=== PATIENT | male | born 1950 | race American Indian/Alaskan Native ===

== ENCOUNTER 2018-11-14 19:13 | Inpatient (IN) | payer MEDICARE, OTHER ==
[2018-11-14] MEDS ORDERED: NACL 0.9% 1000 ML 1,000 ML IV ONE (19:35)
[2018-11-14 19:54] LABS: Basophils % (Auto) 0.4 % (0.0-1.8); Eosinophils % (Auto) 0.1 % (0.0-4.3); Hematocrit 38.5 % (35.5-45.6); Hemoglobin 12.8 gm/dl (11.8-15.2); Lymphocytes # (Auto) 0.9 K/mm3 (1.2-5.4); Lymphocytes % (Auto) 8.8 % (13.4-35.0); Mean Corpuscular HGB Conc 33 % (32-34); Mean Corpuscular Volume 96 fl (84-94); Monocytes # (Auto) 0.9 K/mm3 (0.0-0.8); Monocytes % (Auto) 8.9 % (0.0-7.3); Platelet Count 250 K/mm3 (140-440); Red Blood Count 4.02 M/mm3 (3.65-5.03); Red Cell Distribution Width 12.5 % (13.2-15.2)
[2018-11-14] MEDS ORDERED: LEVSIN SL SL ONE (19:55)
[2018-11-14] MEDS ORDERED: ZOFRAN ODT PO STA (19:55)
[2018-11-14 20:56] LABS: Bilirubin,Urine NEG (Negative); Blood,Urine SM (Negative); Color,Urine Yellow (Yellow); Hyaline Casts,Urine 1 /LPF; Mucus,Urine FEW /HPF; RBC,Urine < 1.0 /HPF (0.0-6.0)
--- NOTE | 2018-11-14 21:14 | XRay Report ---
FINAL REPORT EXAM: XR ABD SERIES W CXR 1V HISTORY: constipation abd pain TECHNIQUE: Frontal view of the chest and frontal views of the abdomen and pelvis in the supine and u pright positions Comparison: None FINDINGS: X-ray chest: There is bilateral hyperinflation of the lungs without evidence of focal infiltrate, pneumothorax or pleural fluid collection. The cardiac silhouette is normal size. The thoracic aorta is mildly tortuous. The bony structures are notable for mild dextrocurvature of the lower thoracic spine. X-ray abdomen and pelvis: There are mildly to moderately distended air-filled loops of bowel in the abdomen with a paucity of b owel gas in the pelvis. Air-fluid levels are demonstrated on the upright view. This is concerning for a small bowel obstructi on. There is no definite evidence of pneumoperitoneum. Surgical clips are demonstrated in the upper abdomen and in the lower pelvis. The bony structures are unremarkable. IMPRESSION: 1. Findings concerning for a small bowel obstruction. CT abdomen and pelvis is recommended for further evaluation. 2. Hyperinflation suggestive of COPD.
[2018-11-14 21:27] LABS: Alanine Aminotransferase 47 units/L (7-56); Albumin 4.9 g/dL (3.9-5); BUN/Creatinine Ratio 13; Blood Urea Nitrogen 14 mg/dL (9-20); Calcium 9.8 mg/dL (8.4-10.2); Hemolysis Index 38
--- NOTE | 2018-11-14 21:35 | Emergency Department Report ---
ED Abdominal Pain HPI - General Chief Complaint: Abdominal Pain Stated Complaint: ABDOMINAL PAIN Time Seen by Provider: 11/14/18 19:55 Source: patient Mode of arrival: Ambulatory Limitations: No Limitations - History of Present Illness Initial Comments: 68-year-old -[place] male with a past medical history of prostate cancer in remission, and hypertension as well as peptic ulcers, treated with a partial gastrectomy presents to the emergency department complaining of abdominal pain that started on yesterday and a sharp throbbing fashion. This was associated with some nausea and a couple episodes of vomiting. He reports no diarrhea but has has had some constipation. Last bowel movement being 2 days ago. Post no fever, chills, sweats, chest pain, palpitations. No dysuria or hematuria. No new medications and denies any trauma. MD Complaint: abdominal pain Location: diffuse Radiation: none Migration to: no migration Severity: mild Quality: dull Consistency: constant Improves With: nothing Worsens With: nothing Associated Symptoms: nausea. denies: vomiting, diarrhea, constipation, dysuria, hematemesis, hematochezia, hematuria, anorexia, syncope - Related Data Home Medications Medication Instructions Recorded Confirmed Last Taken Cyanocobalamin (Vitamin B-12) 1,000 mcg PO DAILY 11/15/18 11/15/18 Unknown [Vitamin B-12] Folic Acid [Folvite] 1 mg PO QDAY 11/15/18 11/15/18 Unknown Multivitamin Tab W-MINERAL 1 each PO QD 11/15/18 11/15/18 Unknown [Multiple Vitamin/Mineral (Theragran M)] Thiamine [Vitamin B-1] 100 mg PO QDAY 11/15/18 11/15/18 Unknown hydroCHLOROthiazide [HCTZ] 25 mg PO QDAY 11/15/18 11/15/18 Unknown Allergies Allergy/AdvReac Type Severity Reaction Status Date / Time shellfish derived Allergy Swelling Verified 11/14/18 19:35 ED Review of Systems ROS: Stated complaint: ABDOMINAL PAIN Other details as noted in HPI Constitutional: denies: chills, fever Eyes: denies: eye pain, eye discharge, vision change ENT: denies: ear pain, throat pain Respiratory: denies: cough, shortness of breath, wheezing Cardiovascular: denies: chest pain, palpitations Endocrine: no symptoms reported Gastrointestinal: denies: abdominal pain, nausea, diarrhea Genitourinary: denies: urgency, dysuria Musculoskeletal: denies: back pain, joint swelling, arthralgia Skin: denies: rash, lesions Neurological: denies: headache, weakness, paresthesias Psychiatric: denies: anxiety, depression Hematological/Lymphatic: denies: easy bleeding, easy bruising ED Past Medical Hx - Past Medical History Previous Medical History?: Yes Hx Hypertension: Yes Hx of Cancer: Yes (prostate remission) - Surgical History Past Surgical History?: Yes Additional Surgical History: ulcer took half of stomach. hernia repair. - Social History Smoking Status: Never Smoker Substance Use Type: None - Medications Home Medications: Home Medications Medication Instructions Recorded Confirmed Last Taken Type Cyanocobalamin (Vitamin B-12) 1,000 mcg PO DAILY 11/15/18 11/15/18 Unknown History [Vitamin B-12] Folic Acid [Folvite] 1 mg PO QDAY 11/15/18 11/15/18 Unknown History Multivitamin Tab W-MINERAL 1 each PO QD 11/15/18 11/15/18 Unknown History [Multiple Vitamin/Mineral (Theragran M)] Thiamine [Vitamin B-1] 100 mg PO QDAY 11/15/18 11/15/18 Unknown History hydroCHLOROthiazide [HCTZ] 25 mg PO QDAY 11/15/18 11/15/18 Unknown History ED Physical Exam - General Limitations: No Limitations General appearance: alert, in no apparent distress - Head Head exam: Present: atraumatic, normocephalic - Eye Eye exam: Present: normal appearance, PERRL, EOMI - ENT ENT exam: Present: normal exam, mucous membranes moist - Neck Neck exam: Present: normal inspection, full ROM. Absent: tenderness - Respiratory Respiratory exam: Present: normal lung sounds bilaterally. Absent: respiratory distress, rales, rhonchi - Cardiovascular Cardiovascular Exam: Present: regular rate, normal rhythm. Absent: systolic murmur, diastolic murmur, rubs, gallop - GI/Abdominal GI/Abdominal exam: Present: soft, tenderness, normal bowel sounds, other (he has some increase decreased tympany. Pain to the epigastric region and mid epigastric region as well. No Haroldo sign, no Bauer Duarte, no Rovsing. No CVA tenderness.) - Rectal Rectal exam: Present: deferred - Extremities Exam Extremities exam: Present: normal inspection - Back Exam Back exam: Present: normal inspection - Neurological Exam Neurological exam: Present: alert, oriented X3 - Psychiatric Psychiatric exam: Present: normal affect, normal mood - Skin Skin exam: Present: warm, dry, intact, normal color. Absent: rash ED Course Vital Signs 11/14/18 11/14/18 11/15/18 19:21 19:31 00:55 Temperature 97.9 F 97.9 F Pulse Rate 97 H 94 H Respiratory 18 18 20 Rate Blood Pressure 160/103 160/103 Blood Pressure [Left] O2 Sat by Pulse 100 100 98 Oximetry 11/15/18 01:40 Temperature 98.0 F Pulse Rate 75 Respiratory 20 Rate Blood Pressure Blood Pressure 147/90 [Left] O2 Sat by Pulse 98 Oximetry - Reevaluation(s) Reevaluation #1: 11/14/18 21:18 Patient is sitting with discomfort, no acute distress. I discussed the findings of the abdominal x-ray with him. He is aware of the possibility of an SBO the need for a CT scan Reevaluation #2: 11/15/18 02:49 Discussed patient's social history of began given his newfound pancreatitis. He admits to having some alcohol. Follow drainage that most recently. Family however states that he drinks beer daily basis, pretty much all day long ED Medical Decision Making - Lab Data Result diagrams: 11/14/18 19:40 11/14/18 20:26 - Radiology Data Radiology results: report reviewed (discussed findings with radiology of the acute abdominal series. Plan is to move [address] scan) - Medical Decision Making Findings of the of the CT scan was discussed with the patient and his family. Also discussed the findings of laboratory data, pancreatitis and hyponatremia. Plan is to admit case will be discussed with the ceramic tile installation helper hospitalist for admission. This was discussed with Dr. Hua as well and was aware of the need for admission. Critical care attestation.: If time is entered above; I have spent that time in minutes in the direct care of this critically ill patient, excluding procedure time. ED Disposition Clinical Impression: Hyponatremia, Pancreatitis Disposition: OP ADMIT IP TO THIS HOSP Is pt being admited?: Yes Does the pt Need Aspirin: No Condition: Stable Referrals: PRIMARY CARE, [Primary Care Provider] - 3-5 Days
[2018-11-14] MEDS ORDERED: BENADRYL IV STA (22:37)
[2018-11-14] MEDS ORDERED: SOLU-Medrol IV STA (22:37)
[2018-11-14] MEDS ORDERED: SOLU-Medrol ONE (22:41)
[2018-11-14] MEDS ORDERED: BENADRYL ONE (22:41)
--- NOTE | 2018-11-14 23:26 | Cat Scan Report ---
FINAL REPORT PROCEDURE: CT abdomen and pelvis with contrast. TECHNIQUE: Computerized axial tomography of the abdomen and pelvis was performed after the IV inject ion of iodinated nonionic contrast. HISTORY: Possible small-bowel obstruction on radiographs. COMPARISON: No prior studies are available for comparison. FINDINGS: There is mild bronchiectasis in both lower lobes. There are no pleural effusions. The heart size is n ormal. The liver, pancreas and spleen appear normal. The gallbladder is present. There is no biliary dilatation. The adrenal glands are not enlarged. There are bilateral renal cysts. The abdominal aorta has a normal caliber. There is no retroperitoneal adenopathy. The unopacified gastrointestinal tract is unremarkable. There are no signs of intestinal obstruction. I believe there is a normal appendix visible. The bladder and seminal vesicles are unremarkable. The prostate gland is mildly enlarged. Th e regional skeleton appears intact. IMPRESSION: Mild bronchiectasis in both lower lobes. Bilateral renal cysts. No evidence of intestinal obstruction . Mild enlargement of the prostate.
[2018-11-15] MEDS ORDERED: ZOFRAN IV PRN (01:31)
[2018-11-15] MEDS: NACL 0.9% 1000 ML 1,000 ML IV SCH ×3 (02:42→22:05)
[2018-11-15 03:24] LABS: BUN/Creatinine Ratio 14; Blood Urea Nitrogen 13 mg/dL (9-20); Hemolysis Index 17
[2018-11-15 06:20] LABS: BUN/Creatinine Ratio 12; Blood Urea Nitrogen 12 mg/dL (9-20); Calcium 9.1 mg/dL (8.4-10.2); Hemolysis Index 5
--- NOTE | 2018-11-15 08:58 | History and Physical Report ---
CHIEF COMPLAINT: Abdominal pain. HISTORY OF PRESENT ILLNESS: The patient is a 68-year male, who started having abdominal pain going on for about 2 to 3 days. The pain is in the periumbilical area and radiates to both sites according to the patient. There is no history of associated fever. There is a history of associated nausea. There is no history of diarrhea reported or history of constipation. There is also no history of chills, fever, or diaphoresis. The patient admitted to drinking some alcohol prior to symptoms occurring. There is no history of shortness of breath or chest pain. PAST MEDICAL HISTORY: Pertinent for hypertension; prostate cancer, in remission and peptic ulcer disease. PAST SURGICAL HISTORY: Pertinent for abdominal surgery because of peptic ulcer and hernia repair. FAMILY HISTORY: Noncontributory. SOCIAL HISTORY: The patient drinks alcohol. He does not smoke cigarettes and does not use illicit drugs. MEDICATIONS: The patient's home medications include cyanocobalamin 1000 mg by mouth daily, folic acid 1 mg by mouth daily, hydrochlorothiazide 25 mg by mouth daily, multivitamin with minerals 1 tablet by mouth daily, and thiamine 100 mg by mouth daily. ALLERGIES: THE PATIENT IS ALLERGIC TO SHELLFISH. REVIEW OF SYSTEMS: CONSTITUTIONAL: There is no fever, no chills, no diaphoresis. HEENT: There is no headache or sore throat. CARDIOVASCULAR SYSTEM: There is no chest pain or orthopnea. RESPIRATORY SYSTEM: There is no shortness of breath or cough. GASTROINTESTINAL SYSTEM: Abdominal pain present. Nausea present. No vomiting, no diarrhea or constipation. NEUROLOGICAL SYSTEM: There is no numbness, no dizziness, no altered mental status. MUSCULOSKELETAL SYSTEM: There is no joint pain or swelling. DERMATOLOGICAL SYSTEM: There is no skin rash or itching. GENITOURINARY SYSTEM: There is no dysuria, hematuria, or flank pain. Rest of system review is normal. PHYSICAL EXAMINATION: GENERAL: At the time of exam, the patient was found to be alert, oriented x3 and not in acute distress. VITAL SIGNS: At the initial time of presentation showed a temperature of 97.9 degrees Fahrenheit, pulse of 97, respirations 18, blood pressure 160/103, and O2 sat of 100% on room air. HEENT: Showed pupils to be equal, round, reactive to light and accommodating. Extraocular muscles are intact. NECK: Supple with no JVD or carotid bruit. CARDIOVASCULAR SYSTEM: Showed normal first and second heart sounds with no gallops or murmurs. RESPIRATORY SYSTEM: Showed good air entry on both sides of the lungs with no abnormal breath sounds. GASTROINTESTINAL SYSTEM: Showed abdomen to be full, soft, nontender with no organomegaly or rigidity. NEUROLOGICAL SYSTEM: Showed no focal deficits. MUSCULOSKELETAL SYSTEM: Showed no joint swelling or tenderness. DERMATOLOGICAL SYSTEM: Showed no skin rash. GENITOURINARY SYSTEM: Showed no costovertebral angle tenderness. PERTINENT LABORATORY DATA AND IMAGING STUDIES: The patient had acute abdominal series done that shows findings concerning for small bowel obstruction and the radiologist recommended CT of the abdomen and pelvis. There is also a finding of hyperinflation in the acute abdominal series suggestive of COPD. The patient had CT of the abdomen and pelvis done with contrast, and this showed mild bronchiectasis in both lower lobes of the lungs, bilateral ____ were found, no evidence of intestinal obstruction was found, mild enlargement of the prostate was noted. Lab results: The patient had CBC done with normal white count, normal hemoglobin and normal hematocrit with CBC differential showing elevated segmented neutrophil count of 81.8%, and the patient's chemistry showed low sodium level of 125, with normal potassium level and chloride level of 79.3. The patient's total bilirubin level was high with a value of 2.0. The patient's liver transaminases show elevated AST of 57 with normal ALT of 47. The patient's lipase level was high with a value of 2073. Urinalysis came back unremarkable. DIAGNOSES: 1. Acute pancreatitis. 2. Hyponatremia. PLAN: 1. The patient will be admitted to medical/surgical [facility]. 2. The patient will remain n.p.o. until symptoms resolve. 3. The patient will have basic metabolic panel checked at 2 a.m. and at 6 a.m. 4. The patient will have lipase level checked in the morning. 5. The patient will be on IV morphine 2 mg every 3 hours as needed for pain and IV Zofran 4 mg every 8 hours as needed for nausea and vomiting. 6. The patient will be sodium chloride and normal saline running at 125 mL an hour. 7. The patient will have sodium level monitored at 2 a.m. and at 6 a.m. today. 8. DVT prophylaxis will be through sequential compressive devices and heparin 5000 units subcutaneously q.12 hours. JOB# [id number] OCN/NTS
[2018-11-15] MEDS: HEPARIN SUB-Q SCH ×2 (10:32→22:04)
--- NOTE | 2018-11-15 10:38 | Progress Note ---
Assessment and Plan Assessment and plan: Patient is a 68 year old male with a past medical history of prostate cancer in remission, and hypertension and peptic ulcers, treated with a partial gastrectomy presents to the emergency department complaining of periumbilical pain started [employer].This was associated with some nausea and a couple episodes of vomiting. He reports no diarrhea but has has had some constipation. Post no fever, chills, sweats, chest pain palpitations. No dysuria or hematuria. No new medications and denies any trauma. Imaging studies revealed bronchiectasis but was also noted on labs to have significantly elevated Lipase. Acute Pancreatitis ?etoh induced Hyponatremia Prostate Ca- in remission ETOH USE DISORDER- Last drink was on wednesday prior to presentation. Drinks 4-6 23 oz beer. unable to clarify consistence HTN Peptic Ulcer Disease. PLAN Supportive care Pain control Check LFT Per family not on ACEI Counselling against etoh use. Patient verbalized understanding Restart appropriate home meds Evaluate for secondary etiology for pancreatitis. DVT/GI prophy Discussed plan with patient and family History Interval history: Patient seen and examined, Resting comfortably. still with some mild abdominal pain but no fever. Family at bedside Hospitalist Physical - Constitutional Vitals: Temp Pulse Resp BP Pulse Ox 97.9 F 78 20 145/70 98 11/15/18 05:00 11/15/18 05:00 11/15/18 08:50 11/15/18 05:00 11/15/18 05:00 Results - Labs CBC & Chem 7: 11/14/18 19:40 11/15/18 05:23 Labs: Laboratory Last Values WBC 9.8 K/mm3 (4.5-11.0) 11/14/18 19:40 RBC 4.02 M/mm3 (3.65-5.03) 11/14/18 19:40 Hgb 12.8 gm/dl (11.8-15.2) 11/14/18 19:40 Hct 38.5 % (35.5-45.6) 11/14/18 19:40 MCV 96 fl (84-94) H 11/14/18 19:40 MCH 32 pg (28-32) 11/14/18 19:40 MCHC 33 % (32-34) 11/14/18 19:40 RDW 12.5 % (13.2-15.2) L 11/14/18 19:40 Plt Count 250 K/mm3 (140-440) 11/14/18 19:40 Lymph % (Auto) 8.8 % (13.4-35.0) L 11/14/18 19:40 [place] % (Auto) 8.9 % (0.0-7.3) H 11/14/18 19:40 Eos % (Auto) 0.1 % (0.0-4.3) 11/14/18 19:40 Baso % (Auto) 0.4 % (0.0-1.8) 11/14/18 19:40 Lymph # 0.9 K/mm3 (1.2-5.4) L 11/14/18 19:40 [place] # 0.9 K/mm3 (0.0-0.8) H 11/14/18 19:40 Eos # 0.0 K/mm3 (0.0-0.4) 11/14/18 19:40 Baso # 0.0 K/mm3 (0.0-0.1) 11/14/18 19:40 Seg Neutrophils % 81.8 % (40.0-70.0) H 11/14/18 19:40 Seg Neutrophils # 8.0 K/mm3 (1.8-7.7) H 11/14/18 19:40 Sodium 130 mmol/L (137-145) L 11/15/18 05:23 Potassium 3.9 mmol/L (3.6-5.0) 11/15/18 05:23 Chloride 88.1 mmol/L (98-107) L 11/15/18 05:23 Carbon Dioxide 23 mmol/L (22-30) 11/15/18 05:23 Anion Gap 23 mmol/L 11/15/18 05:23 BUN 12 mg/dL (9-20) 11/15/18 05:23 Creatinine 1.0 mg/dL (0.8-1.5) 11/15/18 05:23 Estimated GFR > 60 ml/min 11/15/18 05:23 BUN/Creatinine Ratio 12 % 11/15/18 05:23 Glucose 122 mg/dL (75-100) H 11/15/18 05:23 Calcium 9.1 mg/dL (8.4-10.2) 11/15/18 05:23 Total Bilirubin 2.00 mg/dL (0.1-1.2) H 11/14/18 20:26 AST 57 units/L (5-40) H 11/14/18 20:26 ALT 47 units/L (7-56) 11/14/18 20:26 Alkaline Phosphatase 107 units/L (35-129) 11/14/18 20:26 Total Protein 7.6 g/dL (6.3-8.2) 11/14/18 20:26 Albumin 4.9 g/dL (3.9-5) 11/14/18 20:26 Albumin/Globulin Ratio 1.8 % 11/14/18 20:26 Lipase 1387 units/L (13-60) H 11/15/18 05:23 Urine Color Yellow (Yellow) 11/14/18 20:31 Urine Turbidity Clear (Clear) 11/14/18 20:31 Urine pH 5.0 (5.0-7.0) 11/14/18 20:31 Ur Specific [place] 1.018 (1.003-1.030) 11/14/18 20:31 Urine Protein 100 mg/dl mg/dL (Negative) 11/14/18 20:31 Urine Glucose (UA) Neg mg/dL (Negative) 11/14/18 20:31 Urine Ketones 20 mg/dL (Negative) 11/14/18 20:31 Urine Blood Sm (Negative) 11/14/18 20:31 Urine Nitrite Neg (Negative) 11/14/18 20:31 Urine Bilirubin Neg (Negative) 11/14/18 20:31 Urine Urobilinogen 2.0 mg/dL (<2.0) 11/14/18 20:31 Ur Leukocyte Esterase Neg (Negative) 11/14/18 20:31 Urine WBC (Auto) 1.0 /HPF (0.0-6.0) 11/14/18 20:31 Urine RBC (Auto) < 1.0 /HPF (0.0-6.0) 11/14/18 20:31 Hyaline Casts 1 /LPF 11/14/18 20:31 Urine Mucus Few /HPF 11/14/18 20:31
[2018-11-15] MEDS: THERAGRAN-M Tab PO SCH (15:12)
[2018-11-15] MEDS ORDERED: ATIVAN IV PRN (16:44)
[2018-11-15] MEDS: MORPHINE IV PRN (22:04)
[2018-11-16 05:28] LABS: Hematocrit 35.6 % (35.5-45.6); Hemoglobin 11.6 gm/dl (11.8-15.2); Mean Corpuscular HGB Conc 33 % (32-34); Mean Corpuscular Volume 99 fl (84-94); Platelet Count 198 K/mm3 (140-440); Red Blood Count 3.61 M/mm3 (3.65-5.03); Red Cell Distribution Width 12.6 % (13.2-15.2)
[2018-11-16 05:55] LABS: BUN/Creatinine Ratio 9; Blood Urea Nitrogen 9 mg/dL (9-20); Calcium 8.6 mg/dL (8.4-10.2)
[2018-11-16 05:56] LABS: Alanine Aminotransferase 27 units/L (7-56); Albumin 3.3 g/dL (3.9-5); Hemolysis Index 22
--- NOTE | 2018-11-16 09:20 | Progress Note ---
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 He reports no diarrhea but has has had some constipation. Post no fever, chills, sweats, chest pain palpitations. No dysuria or hematuria. No new medications and denies any trauma. Imaging studies revealed bronchiectasis but was also noted on labs to have significantly elevated Lipase. Acute Pancreatitis ?etoh induced Hyponatremia-IMPROVING Hypokalemia Prostate Ca- in remission ETOH USE DISORDER- Last drink was on Wednesday prior to presentation. Drinks 4-6 23 oz beer. unable to clarify consistence HTN Peptic Ulcer Disease. PLAN Supportive care Pain control Replace K LFT improving Per family not on ACEI advance diet Counselling against etoh use. Patient verbalized understanding Restart appropriate home meds Evaluate for secondary etiology for pancreatitis. DVT/GI prophy Discussed plan with patient and family Anticipate discharge in AM if tolerating diet History Interval history: Patient seen and examined, Resting comfortably. still with some mild abdominal pain but no fever. Family at bedside Hospitalist Physical - Physical exam Narrative exam: VITAL SIGNS: Reviewed. GENERAL: The patient appeared well nourished and normally developed. Vital signs as documented. HEAD: No signs of head trauma. EYES: Pupils are equal. Extraocular motions intact. EARS: Hearing grossly intact. MOUTH: Oropharynx is normal. NECK: No adenopathy, no JVD. CHEST: Chest with clear breath sounds bilaterally. No wheezes, rales, or rhonchi. CARDIAC: Regular rate and rhythm. S1 and S2, without murmurs, gallops, or rubs. VASCULAR: No Edema. Peripheral pulses normal and equal in all extremities. ABDOMEN: Soft, without detectable tenderness. No sign of distention. No rebound or guarding, and no masses palpated. Bowel Sounds normal. MUSCULOSKELETAL: Good range of motion of all major joints. Extremities without clubbing, cyanosis or edema. NEUROLOGIC EXAM: Alert and oriented x 3. No focal sensory or strength deficits. Speech normal. Follows commands. PSYCHIATRIC: Mood normal. SKIN: No rash or lesions. - Constitutional Vitals: Temp Pulse Resp BP Pulse Ox 98.4 F 68 20 148/95 100 11/16/18 08:17 11/16/18 08:17 11/16/18 08:17 11/16/18 08:17 11/16/18 08:17 Results - Labs CBC & Chem 7: 11/16/18 05:02 11/16/18 05:02 Labs: Laboratory Last Values WBC 10.5 K/mm3 (4.5-11.0) 11/16/18 05:02 RBC 3.61 M/mm3 (3.65-5.03) L 11/16/18 05:02 Hgb 11.6 gm/dl (11.8-15.2) L 11/16/18 05:02 Hct 35.6 % (35.5-45.6) 11/16/18 05:02 MCV 99 fl (84-94) H 11/16/18 05:02 MCH 32 pg (28-32) 11/16/18 05:02 MCHC 33 % (32-34) 11/16/18 05:02 RDW 12.6 % (13.2-15.2) L 11/16/18 05:02 Plt Count 198 K/mm3 (140-440) 11/16/18 05:02 Lymph % (Auto) 8.8 % (13.4-35.0) L 11/14/18 19:40 [place] % (Auto) 8.9 % (0.0-7.3) H 11/14/18 19:40 Eos % (Auto) 0.1 % (0.0-4.3) 11/14/18 19:40 Baso % (Auto) 0.4 % (0.0-1.8) 11/14/18 19:40 Lymph # 0.9 K/mm3 (1.2-5.4) L 11/14/18 19:40 [place]ink[place] # 0.9 K/mm3 (0.0-0.8) H 11/14/18 19:40 Eos # 0.0 K/mm3 (0.0-0.4) 11/14/18 19:40 Baso # 0.0 K/mm3 (0.0-0.1) 11/14/18 19:40 Seg Neutrophils % 81.8 % (40.0-70.0) H 11/14/18 19:40 Seg Neutrophils # 8.0 K/mm3 (1.8-7.7) H 11/14/18 19:40 Sodium 133 mmol/L (137-145) L 11/16/18 05:02 Potassium 3.4 mmol/L (3.6-5.0) L 11/16/18 05:02 Chloride 97.2 mmol/L (98-107) L 11/16/18 05:02 Carbon Dioxide 21 mmol/L (22-30) L 11/16/18 05:02 Anion Gap 18 mmol/L 11/16/18 05:02 BUN 9 mg/dL (9-20) 11/16/18 05:02 Creatinine 1.0 mg/dL (0.8-1.5) 11/16/18 05:02 Estimated GFR > 60 ml/min 11/16/18 05:02 BUN/Creatinine Ratio 9 % 11/16/18 05:02 Glucose 113 mg/dL (75-100) H 11/16/18 05:02 Calcium 8.6 mg/dL (8.4-10.2) 11/16/18 05:02 Total Bilirubin 0.60 mg/dL (0.1-1.2) 11/16/18 05:02 AST 32 units/L (5-40) 11/16/18 05:02 ALT 27 units/L (7-56) 11/16/18 05:02 Alkaline Phosphatase 72 units/L (35-129) 11/16/18 05:02 Total Protein 6.2 g/dL (6.3-8.2) L 11/16/18 05:02 Albumin 3.3 g/dL (3.9-5) L 11/16/18 05:02 Albumin/Globulin Ratio 1.1 % 11/16/18 05:02 Lipase 1387 units/L (13-60) H 11/15/18 05:23 Urine Color Yellow (Yellow) 11/14/18 20:31 Urine Turbidity Clear (Clear) 11/14/18 20:31 Urine pH 5.0 (5.0-7.0) 11/14/18 20:31 Ur Specific Broussard 1.018 (1.003-1.030) 11/14/18 20:31 Urine Protein 100 mg/dl mg/dL (Negative) 11/14/18 20:31 Urine Glucose (UA) Neg mg/dL (Negative) 11/14/18 20:31 Urine Ketones 20 mg/dL (Negative) 11/14/18 20:31 Urine Blood Sm (Negative) 11/14/18 20:31 Urine Nitrite Neg (Negative) 11/14/18 20:31 Urine Bilirubin Neg (Negative) 11/14/18 20:31 Urine Urobilinogen 2.0 mg/dL (<2.0) 11/14/18 20:31 Ur Leukocyte Esterase Neg (Negative) 11/14/18 20:31 Urine WBC (Auto) 1.0 /HPF (0.0-6.0) 11/14/18 20:31 Urine RBC (Auto) < 1.0 /HPF (0.0-6.0) 11/14/18 20:31 Hyaline Casts 1 /LPF 11/14/18 20:31 Urine Mucus Few /HPF 11/14/18 20:31 Nutrition/Malnutrition Assess - Dietary Evaluation Nutrition/Malnutrition Findings: Nutrition Notes Start: 11/15/18 12:19 Freq: Status: Active Protocol: Document 11/15/18 12:19 CT (Rec: 11/15/18 12:51 CT [id number]) Co-Sign 11/15/18 12:19 RM Nutrition Notes Need for Assessment generated from: MST Initial or Follow up Assessment Current Diagnoses Hypertension Other Pertinent Diagnosis pancreatitis, partial gastrectomy, peptic ulcer Current Diet NPO Labs/Tests glucose 122 NA 130 Medications reviewed Height 5 ft 8 in Weight 49.8 kg [place] Body Weight (lbs) 154.0 BMI 16.7 Subjective/Other Information RD screen for MST. Pt reported his UBW is 117. He has not eaten since 11/12/18, has a strong appetite and is not experiencing any n/v/d. He would like ONS following diet advancement. Burn Absent Trauma Absent #1 Nutrition Diagnoses Predicted suboptimal energy intake Etiology decreased appetite d/t pancreatitis As Evidenced by Signs and Symptoms BMI 16.7 Is patient on ventilator? No Is Patient Ambulatory and/or Out of Bed Yes REE-([place]-St. Jeor-ambulatory/OOB) [ 8128.750 NUTR.MSJOOB] Kcal/Kg value to use for calculation 38 Approximate Energy Requirements Using 1892 kcal/Kg Calculation Used for Recommendations Kcal/kg Additional Notes PRO: (1.2 - 1.4 g/kg) 60 - 70g PRO/daily fluid: 1ml/kcal Nutrition Intervention Change Diet Order: Advance when medically feasible. Add Supplement/Snack (indicate name/kcal Ensure Clear Daily once diet /protein ) advanced Provides kCal: 240 Provides Protein (gm) 8 Goal #1 Diet Advancement Follow-Up By: 11/18/18 Additional Comments F/U: Diet Advancement
[2018-11-16] MEDS ORDERED: HYDROCHLOROTHIAZIDE PO SCH (10:00)
[2018-11-16] MEDS ORDERED: K-DUR PO NR (10:00)
[2018-11-16] MEDS ORDERED: LISINOPRIL PO SCH (10:00)
[2018-11-16] MEDS ORDERED: NON-FORMULARY (Cyanocobalamin (Vitamin B-12) [Vitamin B-12] 1,000 MCG) PO SCH (10:00)
[2018-11-16] MEDS: NACL 0.9% 1000 ML 1,000 ML IV SCH ×2 (10:42→22:07)
[2018-11-16] MEDS: FOLVITE PO SCH (10:45)
[2018-11-16] MEDS: VITAMIN B-12 PO SCH (10:45)
[2018-11-16] MEDS: VITAMIN B-1 PO SCH (10:46)
[2018-11-16] MEDS: HCTZ PO SCH (10:46)
[2018-11-16] MEDS: THERAGRAN-M Tab PO SCH (10:46)
[2018-11-16] MEDS: HEPARIN SUB-Q SCH ×2 (10:47→22:06)
[2018-11-16] MEDS: COLACE PO SCH ×2 (17:59→22:05)
[2018-11-16] MEDS: MORPHINE IV PRN (19:12)
--- NOTE | 2018-11-17 08:17 | Discharge Summary ---
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 He reports no diarrhea but has has had some constipation. Post no fever, chills, sweats, chest pain palpitations. No dysuria or hematuria. No new medications and denies any trauma. Imaging studies revealed bronchiectasis but was also noted on labs to have significantly elevated Lipase. Patient was treated for acute pancreatitis and extensive counselling was given about alcohol use. He is stable for discharge, will continue on GI soft diet and follow with PCP. Acute Pancreatitis ?etoh induced Hyponatremia-IMPROVING Hypokalemia Prostate Ca- in remission ETOH USE DISORDER- Last drink was on Wednesday prior to presentation. Drinks 4-6 23 oz beer. unable to clarify consistence HTN Peptic Ulcer Disease. Disposition: DC-01 TO HOME OR SELFCARE Time spent for discharge: 35 mins Core Measure Documentation - Palliative Care Palliative Care/ Comfort Measures: Not Applicable - Core Measures Any of the following diagnoses?: none Exam - Physical Exam Narrative exam: VITAL SIGNS: Reviewed. GENERAL: The patient appeared normally developed otherwise cachetic. Vital signs as documented. HEAD: No signs of head trauma. temporal wasting EYES: Pupils are equal. Extraocular motions intact. EARS: Hearing grossly intact. MOUTH: Oropharynx is normal. NECK: No adenopathy, no JVD. CHEST: Chest with clear breath sounds bilaterally. No wheezes, rales, or rhonchi. CARDIAC: Regular rate and rhythm. S1 and S2, without murmurs, gallops, or rubs. VASCULAR: No Edema. Peripheral pulses normal and equal in all extremities. ABDOMEN: Soft, without detectable tenderness. No sign of distention. No rebound or guarding, and no masses palpated. Bowel Sounds normal. MUSCULOSKELETAL: Good range of motion of all major joints. Extremities without clubbing, cyanosis or edema. NEUROLOGIC EXAM: Alert and oriented x 3. No focal sensory or strength deficits. Speech normal. Follows commands. PSYCHIATRIC: Mood normal. SKIN: No rash or lesions. - Constitutional Vitals: Temp Pulse Resp BP Pulse Ox 98.9 F 65 18 153/90 100 11/17/18 02:00 11/17/18 02:00 11/17/18 02:00 11/17/18 02:00 11/17/18 02:00 Plan Activity: advance as tolerated, fall precautions Diet: advance as tolerated (GI soft for 3 more days then advance) Special Instructions: other (avoid alcohol) Follow up with: PRIMARY CARE, [Primary Care Provider] - 3-5 Days Prescriptions: Ondansetron [Zofran Odt] 4 mg PO Q8HR #30 tab.kelly Pantoprazole [Protonix TAB] 20 mg PO DAILY #30 tablet. traMADol [Ultram] 50 mg PO Q6HR PRN #30 tablet PRN Reason: Pain
[2018-11-17 08:45] VITALS: BP 145/88
[2018-11-17] MEDS: HCTZ PO SCH (09:15)
[2018-11-17] MEDS: VITAMIN B-1 PO SCH (09:15)
[2018-11-17] MEDS: THERAGRAN-M Tab PO SCH (09:15)
[2018-11-17] MEDS: HEPARIN SUB-Q SCH (09:15)
[2018-11-17] MEDS: VITAMIN B-12 PO SCH (09:15)
[2018-11-17] MEDS: FOLVITE PO SCH (09:15)
[2018-11-17] MEDS: COLACE PO SCH (09:15)
== END 2018-11-17 10:15 | disposition home or self-care (01) | DRG 640 ==
LOC: ED 19:13 → 2B-ACE 11-15 01:29
PROVIDERS: ADMIT Internal Medicine; ATTEND Internal Medicine
DX: E87.1 Hypo-osmolality and hyponatremia (principal); K85.90 Acute pancreatitis without necrosis or infection, unspecified; F10.99 Alcohol use, unspecified with unspecified alcohol-induced disorder; K59.00 Constipation, unspecified; Y90.0 Blood alcohol level of less than 20 mg/100 ml; E87.6 Hypokalemia; I10 Essential (primary) hypertension; Z87.11 Personal history of peptic ulcer disease; Z91.013 Allergy to seafood; Z90.49 Acquired absence of other specified parts of digestive tract; Z71.41 Alcohol abuse counseling and surveillance of alcoholic; Z85.46 Personal history of malignant neoplasm of prostate
CPT/HCPCS: 36415; 74022; 74177; 80048; 80053; 81001; 83690; 85025; 85027; 96361; 96374; 96375; G0378; J1200; J1644; J2270; J2405; J2930; J7030; Q0162; Q9967